=== PATIENT | female | born 1990 | race American Indian/Alaskan Native ===

== ENCOUNTER 2021-11-26 08:20 | Day surgery (SDC) | payer OTHER ==
[2021-11-26] MEDS ORDERED: SODIUM CHLORIDE 0.9% 500 ML 500 ML IV SCH (10:00)
[2021-11-26 10:52] LABS: Hematocrit 24.6 % (30.3-42.9); Hemoglobin 7.5 gm/dl (10.1-14.3); Mean Corpuscular HGB Conc 31 % (30-34); Mean Corpuscular Volume 86 fl (79-97); Platelet Count 467 K/mm3 (140-440); Red Blood Count 2.85 M/mm3 (3.65-5.03)
[2021-11-26 10:53] LABS: Red Cell Distribution Width 24.1 % (13.2-15.2)
[2021-11-26 10:57] LABS: BUN/Creatinine Ratio 41; Blood Urea Nitrogen 45 mg/dL (7-17); Calcium 9.7 mg/dL (8.4-10.2); Hemolysis Index 0
[2021-11-26 11:00] LABS: INR 0.96 (0.87-1.13)
[2021-11-26 11:01] LABS: Partial Thromboplastin Time 26.6 Sec. (24.2-36.6)
[2021-11-26] MEDS ORDERED: HEPARIN 10,000 UNITS/10 ML VIAL ONE (11:02)
[2021-11-26] MEDS ORDERED: fentaNYL 100 MCG/2 ML INJ ONE (11:02)
[2021-11-26] MEDS ORDERED: LIDOCAINE (2%) 20 MG/1 ML VIAL 20 ML MDV INFILTRATI ONE (11:02)
[2021-11-26] MEDS ORDERED: MIDAZOLAM 2 MG/2 ML INJ ONE (11:02)
[2021-11-26] MEDS ORDERED: HEPARIN/NS 5000 UNIT/500ML 1,000 ML IR ONE (11:02)
[2021-11-26 11:25] LABS: Basophils % (Manual) 0 % (0.0-1.8); Total Cells Counted 100
[2021-11-26 11:26] LABS: Anisocytosis 2+; Platelet Estimate Consistent w Auto
[2021-11-26] MEDS ORDERED: LIDOCAINE (1%) 10 MG/1 ML VIAL 20 ML MDV ONE (11:32)
--- NOTE | 2021-11-26 13:04 | Cardiac Catherization Report ---
DATE OF PROCEDURE: 11/26/2021 LEFT AND RIGHT HEART CATHETERIZATION INDICATIONS: 1. Cardiomyopathy. 2. Pulmonary hypertension. 3. Chronic combined heart failure. ORDERING PROVIDER: Tomas Davis MD PROCEDURES PERFORMED: 1. Selective left coronary angiography. 2. Selective right coronary angiography. 3. Left ventriculography. 4. Right heart catheterization with hemodynamic measurement and oxygen saturation run. DESCRIPTION OF PROCEDURE: 1. After obtaining written consent, the patient was draped using sterile technique. 2. A 2% lidocaine was injected into the right groin. 3. A 5-[place] vascular sheath was inserted into the right femoral artery using a micropuncture needle. An 8-[place] vascular sheath was inserted into the right femoral vein using a micropuncture needle. A 5-[place] JL4 catheter was used to selectively engage the left coronary artery. A 5-[place] JR4 catheter was used to selectively engage the right coronary artery. A 5-[place] JR4 catheter was used to hand inject the left ventriculogram. A 7-[place] Flora-Vandana catheter was used to measure right sided hemodynamics and performed an oxygen saturation run. No complications occurred during the procedure. Hemostasis was achieved at the end of the procedure using manual pressure. 4. Total sedation administered was 0.5 mg of IV Versed and 25 mcg of IV fentanyl. 5. Physician patient [id number] sedation start time is 11:33 a.m. 6. Physician patient [id number] sedation stop time is 11:56 a.m. 7. Total sedation time is 23 minutes. SPECIMENS REMOVED: None. ESTIMATED BLOOD LOSS: Minimal. FINDINGS: HEMODYNAMICS: 1. Aortic pressure was 128/93. 2. LV systolic pressure is 130 mmHg. 3. LV end-diastolic pressure was 20 mmHg. 4. Mean pulmonary capillary wedge pressure was 20 mmHg. 5. Pulmonary artery pressure was 64/31/48 mmHg. 6. The right ventricular systolic pressure was 66 mmHg. The right ventricular end diastolic pressure was 27 mmHg. 7. The mean right atrial pressure was 24 mmHg. 8. Pulmonary artery saturation was 53%. 9. Right ventricular saturation was 54%. 10. Right atrial saturation was 57%. 11. Aortic saturation was 92%. 12. Casa cardiac output is 9.05 liters per minute. 13. Casa cardiac index is 3.72 liters per minute per meter squared. 14. Transpulmonary gradient is calculated at 27 mmHg. 15. Pulmonary vascular resistance is calculated at 2.98 Wood units. 16. Diastolic pressure gradient is calculated at 17 mmHg. CARDIAC STRUCTURES: The left ventricle is normal in size. There is mild global left ventricular hypokinesis. The left ventricular ejection fraction is estimated between 40% and 45%. CORONARY ANATOMY: 1. The left main is angiographically normal. 2. The LAD is angiographically normal. 3. The left circumflex artery is angiographically normal. 4. The right coronary artery is angiographically normal. 5. The right coronary artery is a dominant vessel. IMPRESSION: 1. Angiographically normal coronary circulation. 2. Mild global left ventricular hypokinesis with an ejection fraction estimated between 40% and 45%. 3. Moderate to severe pulmonary hypertension, mixed pre and post-capillary pulmonary hypertension with a mean pulmonary artery pressure of 48 mmHg, transpulmonary gradient of 27 mmHg, pulmonary vascular resistance of 2.98 Nelson units. End diastolic pressure gradient of 17 mmHg. 4. Elevated right and left sided filling pressures. The mean pulmonary capillary wedge pressure measured at 20 mmHg and the mean right atrial pressure measured at 24 mmHg. 5. Preserved cardiac output with a cardiac index of 3.72 liters per minute per meter squared. 6. No evidence of an intracardiac shunt. RECOMMENDATIONS: 1. The patient will be recommended for medical therapy. 2. Continue p.o. diuresis and fluid restriction. 3. Continue afterload reduction. DISPOSITION: Home. CONDITION AT DISCHARGE: Stable. TID: [id number] RECEIPT: [id number] PAT/KYLAH
[2021-11-26 16:03] VITALS: BP 145/82
== END 2021-11-26 16:25 | disposition home or self-care (01) ==
LOC: CATHLABREC 08:20 → CATH 08:20 → CATHLABREC 16:25
PROVIDERS: ATTEND Internal Medicine
DX: I11.0 Hypertensive heart disease with heart failure (principal); I50.9 Heart failure, unspecified; I42.9 Cardiomyopathy, unspecified; D64.9 Anemia, unspecified; G47.30 Sleep apnea, unspecified; Z79.899 Other long term (current) drug therapy; Z98.890 Other specified postprocedural states
CPT/HCPCS: 36415; 80048; 85007; 85025; 85610; 85730; 93005; 93460; 99156; 99157; J1644; J2250; J3010; J3490; J7040; Q9967